=== PATIENT | male | born 1980 | race Caucasian/White ===

== ENCOUNTER 2025-04-13 23:56 | Inpatient (IN) | payer OTHER ==
[~2025-04-13] VITALS: Ht 175.3 cm; Wt 82.6 kg
[2025-04-14] VITALS (33 sets, daily range): BP systolic 115–160; BP diastolic 65–137; PULSE 61–130; RESP 7–25; TEMP 36.3–36.8072; O2SAT 99–100
[2025-04-14] MEDS: LORAZEPAM 2MG/ML UD SYRINGE IV NR ×3 (00:37→03:24)
[2025-04-14 00:55] LABS: BASOPHILS % 0.1 % (0.0-2.0); EOSINOPHILS % 0.1 % (0.0-5.0); HEMATOCRIT. 48.8 % (42.0-52.0); HEMOGLOBIN. 16.3 g/dL (14.0-18.0); LYMPHOCYTES % 7.1 % (20.0-50.0); MEAN PLATELET VOLUME 8.6 fl (7.4-10.4); MONOCYTES % 4.2 % (2.0-8.0); NEUTROPHILS % 88.5 % (40.0-76.0); PLATELET 230 x1000/uL (130-400); RED BLOOD CELL COUNT 5.22 mill/uL (4.7-6.1); RED CELL DISTRIBUTION WIDTH 13.6 % (11.6-14.6)
[2025-04-14 01:07] LABS: CREATININE 1.4 mg/dL (0.6-1.3)
[2025-04-14 01:08] LABS: UREA NITROGEN BLOOD 14 mg/dL (9-23)
[2025-04-14 01:09] LABS: ASPARTATE AMINOTRANSFERASE 31 IU/L (<34)
[2025-04-14 01:10] LABS: BILIRUBIN DIRECT 0.3 mg/dL (<=3.0); BILIRUBIN TOTAL 1.0 mg/dL (0.1-1.0); PROTEIN TOTAL 8.2 g/dL (6.0-8.3)
[2025-04-14] MEDS: SODIUM CHLORIDE 0.9% 1,000 ML IV ONE ×4 (01:31→03:22)
[2025-04-14 01:50] LABS: TROPONIN I HIGH SENSITIVITY 7 ng/L (3.0-53)
[2025-04-14] MEDS ORDERED: CHLORPROMAZINE HCL 25 MG TABLET PO NR (04:15)
[2025-04-14] MEDS: CHLORPROMAZINE HCL IM ONE (04:44)
[2025-04-14] MEDS ORDERED: ACETAMINOPHEN 325MG TABLET PO PRN ×2 (04:45)
[2025-04-14] MEDS ORDERED: ZOLPIDEM TARTRATE 5MG TABLET PO PRN (04:45)
[2025-04-14] MEDS ORDERED: CLONIDINE 0.1MG TABLET PO PRN (04:45)
[2025-04-14] MEDS ORDERED: ONDANSETRON HCL 4MG/2ML INJ IV PRN (04:45)
[2025-04-14] MEDS ORDERED: LORAZEPAM 2MG/ML UD SYRINGE IV PRN ×2 (05:00)
[2025-04-14] MEDS ORDERED: METOPROLOL TARTRATE 5MG/5ML VIAL IV NR (05:00)
[2025-04-14] MEDS ORDERED: FENTANYL 2500MCG/250ML PMX 250 ML IV SCH (05:45)
[2025-04-14] MEDS: PROPOFOL 10MG/ML 100ML 100 ML IV SCH (05:49)
[2025-04-14] MEDS: FENTANYL CITRATE 2,500 MCG in SODIUM CHLORIDE 0.9% 200 ML IV PRN (06:05)
[2025-04-14 06:10] LABS: BG BASE EXCESS -2.7 mmol/L (-2.0-3.0); BG CARBOXYHEMOGLOBIN 0.8 % (0.5-1.5); BG DEOXYHEMOGLOBIN 3.2 % (0.0-5.0); BG FRACTION INSPIRED OXYGEN 100; BG HCO3 ACT 24.1 mmol/L (21.0-28.0); BG METHEMOGLOBIN 0.2 % (0.5-1.5); BG OXYGEN SATURATION 96.8 % (94.0-98.0); BG OXYHEMOGLOBIN 95.8 % (94.0-98.0); BG PCO2 49.0 mmHg (35.0-48.0); BG PEEP (cmH2O) 5.0 cmH2O; BG PH 7.309 (7.350-7.450); BG PO2 107.3 mmHg (83.0-108.0); BG SAMPLE SITE RIGHT RADIAL; BG TIDAL VOLUME(mL) 500.0 mL; BG TOTAL HEMOGLOBIN 15.5 g/dL (13.5-17.5); BG TOTAL RESPIRATORY RATE 16 b/min; BG VENT MODE VENT - AC; BG VENT RATE 16.0 set
[2025-04-14] MEDS: DEXT 5%/0.45% NACL 1000ML 1,000 ML IV SCH (07:14)
[2025-04-14] MEDS: FAMOTIDINE 20MG/2ML VIAL IV SCH (08:32)
[2025-04-14] MEDS: ENOXAPARIN 40MG/0.4ML SYR SUBCUT SCH (08:32)
[2025-04-14 10:57] LABS: BASOPHILS % 0.1 % (0.0-2.0); EOSINOPHILS % 0.0 % (0.0-5.0); HEMATOCRIT. 40.5 % (42.0-52.0); HEMOGLOBIN. 13.5 g/dL (14.0-18.0); LYMPHOCYTES % 14.9 % (20.0-50.0); MEAN PLATELET VOLUME 8.5 fl (7.4-10.4); MONOCYTES % 7.9 % (2.0-8.0); NEUTROPHILS % 77.1 % (40.0-76.0); PLATELET 170 x1000/uL (130-400); RED BLOOD CELL COUNT 4.32 mill/uL (4.7-6.1); RED CELL DISTRIBUTION WIDTH 13.5 % (11.6-14.6)
[2025-04-14 11:12] LABS: CREATININE 1.3 mg/dL (0.6-1.3)
[2025-04-14 11:13] LABS: TROPONIN I HIGH SENSITIVITY 44 ng/L (3.0-53); UREA NITROGEN BLOOD 12 mg/dL (9-23)
[2025-04-14 11:59] LABS: CLARITY URINE CLEAR (CLEAR); COLOR URINE YELLOW (YELLOW); GLUCOSE URINE NEGATIVE (NEGATIVE); KETONES URINE 1+ (NEGATIVE); LEUKOCYTE ESTERASE URINE NEGATIVE (NEGATIVE); NITRITE URINE NEGATIVE (NEGATIVE); OCCULT BLOOD URINE TRACE (NEGATIVE); PH URINE 6.0 (4.5-8.0); PROTEIN URINE NEGATIVE (NEGATIVE); SPECIFIC GRAVITY URINE 1.019 (1.005-1.030); UROBILINOGEN URINE 0.2 E.U./dL (0.2-1.0)
[2025-04-14 12:27] LABS: MUCUS URINE TRACE /lpf (NONE/TRACE)
[2025-04-14 12:28] LABS: BACTERIA URINE NONE SEEN; RBC URINE 0-2 /hpf (0-2); SQUAMOUS EPITHELIAL CELL URINE NONE SEEN /lpf (RARE/1+)
[2025-04-14 12:29] LABS: WBC URINE NONE SEEN /hpf (0-2)
[2025-04-14 12:34] LABS: *AMPHETAMINES SCREEN URINE PRESUMPTIVE POSITIVE (NEGATIVE); *BARBITURATES SCREEN URINE NEGATIVE (NEGATIVE); *BENZODIAZEPINES SCREEN URINE NEGATIVE (NEGATIVE); *COCAINE SCREEN URINE NEGATIVE (NEGATIVE); METHADONE URINE SCREEN NEGATIVE (NEGATIVE); OPIATES URINE SCREEN NEGATIVE (NEGATIVE); PHENCYCLIDINE URINE SCREEN NEGATIVE (NEGATIVE)
[2025-04-14 12:35] LABS: CANNABINOID URINE SCREEN NEGATIVE (NEGATIVE); ECSTASY MDMA SCREEN URINE CONF.TEST INDICATED (NEGATIVE)
[2025-04-14 16:48] LABS: BG BASE EXCESS 0.6 mmol/L (-2.0-3.0); BG CARBOXYHEMOGLOBIN 0.6 % (0.5-1.5); BG DEOXYHEMOGLOBIN 0.1 % (0.0-5.0); BG FRACTION INSPIRED OXYGEN 100; BG HCO3 ACT 26.9 mmol/L (21.0-28.0); BG METHEMOGLOBIN 0.2 % (0.5-1.5); BG OXYGEN SATURATION 99.9 % (94.0-98.0); BG OXYHEMOGLOBIN 99.1 % (94.0-98.0); BG PCO2 49.3 mmHg (35.0-48.0); BG PEEP (cmH2O) 5.0 cmH2O; BG PH 7.354 (7.350-7.450); BG PO2 486.7 mmHg (83.0-108.0); BG SAMPLE SITE RIGHT RADIAL; BG TOTAL HEMOGLOBIN 14.1 g/dL (13.5-17.5); BG VENT MODE VENT - CPAP
== END 2025-04-14 17:27 | disposition left against medical advice (07) | DRG 812 ==
LOC: ER 23:56 → EDBEDREQTM 04-14 04:01 → EDBEDREQ 04-14 04:01 → EDBEDREQTM 04-14 04:20 → MICUSO 04-14 04:20 → EDBEDREQSVC 04-14 04:20 → ENRESERV 04-14 05:55 → MICUSO 04-14 06:51
PROVIDERS: ADMIT Student in an Organized Health Care Education/Training Program; ATTEND Student in an Organized Health Care Education/Training Program
PROC: 0BH17EZ Insertion of Endotracheal Airway into Trachea, Via Natural or Artificial Opening (ICD-10-PCS; principal; 2025-04-14)
PROC: 5A1935Z Respiratory Ventilation, Less than 24 Consecutive Hours (ICD-10-PCS; 2025-04-14)
DX: T43.641A Poisoning by ecstasy, accidental (unintentional), initial encounter (principal); G92.8 Other toxic encephalopathy; J96.01 Acute respiratory failure with hypoxia; E87.29 Other acidosis; E87.0 Hyperosmolality and hypernatremia; N17.9 Acute kidney failure, unspecified; N18.9 Chronic kidney disease, unspecified; R73.9 Hyperglycemia, unspecified; Z53.29 Procedure and treatment not carried out because of patient's decision for other reasons; Y92.89 Other specified places as the place of occurrence of the external cause
CPT/HCPCS: 31500; 31720; 36415; 36600; 71045; 80048; 80076; 80305; 80307; 80320; 80329; 81003; 82140; 82375; 82550; 82805; 83036; 83735; 84484; 85025; 87070; 94070; 94664; 96361; 96374; 96375; 99291; J1308; J1650; J2060; J2704; J3010; J3230; J7030; J7050; Q0161; G0480